=== PATIENT | male | born 1980 | race Hispanic/Latino ===

== ENCOUNTER 2021-02-12 15:55 | Emergency (ER) | payer MEDICARE | END 2021-02-12 16:16 | disposition home or self-care (01) | LOC: EDH 15:55 | DX: T59.891A Toxic effect of other specified gases, fumes and vapors, accidental (unintentional), initial encounter (principal); F41.9 Anxiety disorder, unspecified; F31.9 Bipolar disorder, unspecified; Y93.89 Activity, other specified; Y92.89 Other specified places as the place of occurrence of the external cause; Y99.8 Other external cause status ==

== ENCOUNTER 2023-10-07 03:58 | Emergency (ER) | payer OTHER, MEDICARE ==
[~2023-10-07] VITALS: Ht 195.6 cm; Wt 77.6 kg
[2023-10-07 04:11] VITALS: BP 134/90; PULSE 64; RESP 16; O2SAT 99
[2023-10-07 05:17] LABS: INFLUENZA TYPE A Negative For Type A (NEGATIVE); INFLUENZA TYPE B Negative For Type B (NEGATIVE)
[2023-10-07] MEDS ORDERED: LEVO75TA4 PO ×2 (05:23)
[2023-10-07 05:25] LABS: RAPID GROUP A STREP negative (NEGATIVE)
[2023-10-07 05:53] LABS: SARS-CoV-2, RNA, NAAT NEGATIVE SARS CoV-2 (NEGATIVE)
== END 2023-10-07 06:22 | disposition home or self-care (01) ==
LOC: EDH 03:58
DX: R13.10 Dysphagia, unspecified (principal); E03.9 Hypothyroidism, unspecified; Z20.822 Contact with and (suspected) exposure to COVID-19
CPT/HCPCS: 99283; 87635; 87880; 87804 ×2; C9803

== ENCOUNTER 2024-07-17 01:17 | Emergency (ER) | payer OTHER, MEDICARE ==
[~2024-07-17] VITALS: Ht 195.6 cm; Wt 79.4 kg
[~2024-07-17 01:17] MED LIST: LEVO75TA4 PO
[2024-07-17 01:40] LABS: RAPID GROUP A STREP negative (NEGATIVE)
[2024-07-17 01:46] LABS: SARS-CoV-2, RNA, NAAT NEGATIVE SARS CoV-2 (NEGATIVE)
[2024-07-17] MEDS: MORPHINE 2 MG SYG IM ONE (01:49)
[2024-07-17 01:50] LABS: INFLUENZA TYPE A Negative For Type A (NEGATIVE); INFLUENZA TYPE B Negative For Type B (NEGATIVE)
[2024-07-17] MEDS: dexaMETHasone SOD PHOSPHATE 4 MG/ML 1ML VIAL IM ONE (01:50)
[2024-07-17] MEDS ORDERED: AZIT250T9 PO (02:27)
[2024-07-17 03:19] VITALS: BP 124/74; PULSE 70; RESP 18; O2SAT 98
== END 2024-07-17 03:19 | disposition home or self-care (01) ==
LOC: EDH 01:17
DX: J02.9 Acute pharyngitis, unspecified (principal); F31.9 Bipolar disorder, unspecified; Z20.822 Contact with and (suspected) exposure to COVID-19; Z79.899 Other long term (current) drug therapy; Z90.49 Acquired absence of other specified parts of digestive tract; Z90.89 Acquired absence of other organs; Z98.890 Other specified postprocedural states
CPT/HCPCS: 99284; 87635; 87880; 87804 ×2; 96372 ×2; J1100; J2270